=== PATIENT | male | born 1985 ===

== ENCOUNTER 2020-07-06 17:09 | Inpatient (IN) ==
[~2020-07-06 17:09] MED LIST: Zosyn per Pharmacy NOTE FOLLOW UP SCH
[2020-07-06] MEDS ORDERED: NS 0.9% 1000 ml BAG 1,000 ML IV ONE ×2 (17:36)
[2020-07-06] MEDS ORDERED: Piperacillin/Tazobac ADVAN 3.375 GM in NS 0.9% 100 ml BAG 100 ML IVPB ONE (18:20)
[2020-07-06] MEDS ORDERED: NS 0.9% 1000 ml BAG 1,000 ML IV.FLUID IV ONE (18:20)
[2020-07-06 19:52] LABS: Hematocrit 35 % (42-52); Hemoglobin 11.9 g/dL (14.0-18.0); Mean Corpuscular HGB Conc 34 g/dL (31-36); Mean Corpuscular Hemoglobin 31 pg (27-31); Mean Corpuscular Volume 89 fL (80-94); Mean Platelet Volume 8.9 fL (7.4-10.4); Platelet Count 155 10^3/uL (150-450); Red Blood Count 3.89 10^6 /uL (4.18-5.48); Red Cell Distribution Width 13 % (10-15); White Blood Count 13.7 10^3/uL (3.5-10.8)
[2020-07-06 19:54] LABS: ALT 27 U/L (7-52); AST 36 U/L (13-39); Albumin 2.9 g/dL (3.2-5.2); Albumin/Globulin Ratio 0.8 (1-3); Alkaline Phosphatase 190 U/L (34-104); Anion Gap 13 mmol/L (2-11); BUN/Creatinine Ratio 16.5 (8-20); Blood Urea Nitrogen 21 mg/dL (6-24); C Reactive Protein 181.89 mg/L (<8.01); CO2 Carbon Dioxide 21 mmol/L (22-32); Calcium 8.2 mg/dL (8.6-10.3); Chloride 88 mmol/L (101-111); EGFR African American 78.6 (>60); EGFR Non-African American 64.9 (>60); Globulin 3.5 g/dL (2-4); Glucose 107 mg/dL (70-100); Sodium 122 mmol/L (135-145); Total Protein 6.4 g/dL (6.4-8.9)
[2020-07-06 19:56] LABS: Activated Partial Thrombo Time 26.8 seconds (26.0-38.0); INR 1.18 (0.82-1.09)
[2020-07-06 20:03] LABS: Troponin I 0.07 ng/mL (<0.03)
[2020-07-06 20:37] LABS: ABS Lymphocytes 0.2 10^3/ul (1.0-4.8); ABS Monocytes 0.2 10^3/ul (0-0.8); ABS Neutrophils 13.2 10^3/ul (1.5-7.7); Eosinophil % 0.3 %; Lymphocyte % 1.8 %
[2020-07-06] MEDS ORDERED: Iohexol 300 (CONTRAST) 10 ML SDV IV ONE (21:04)
[2020-07-06 21:31] LABS: Urine Appearance Cloudy; Urine Bilirubin Negative (Negative); Urine Blood 1+ (Negative); Urine Color Yellow; Urine Glucose Negative (Negative); Urine Ketones Negative (Negative); Urine Nitrite Positive (Negative); Urine Protein 1+(30 mg/dL) (Negative); Urine Specific Gravity 1.008 (1.010-1.030); Urine Urobilinogen Negative (Negative)
[2020-07-06 21:33] LABS: Influenza A Molecular Negative (Negative); Influenza B Molecular Negative (Negative)
[2020-07-06 21:36] LABS: Urine Bacteria 1+ (Absent); Urine Red Blood Cell Trace(0-2/hpf) (Absent); Urine White Blood Cell 1+(6-10/hpf) (Absent)
[2020-07-06] MEDS ORDERED: KCL 10 MEQ/50 ML IVPREMIX 10 MEQ/50 ML BAG IV ONE (21:37)
[2020-07-06 23:08] LABS: Troponin I 0.06 ng/mL (<0.03)
[2020-07-07 00:29] LABS: Magnesium 1.8 mg/dL (1.9-2.7)
[2020-07-07] MEDS ORDERED: NS 0.9% 1000 ml BAG 1,000 ML IV SCH ×2 (00:30→09:00)
[2020-07-07 00:48] LABS: Urine Sodium Concentration < 18 mmol/L
[2020-07-07 00:57] LABS: Renal Sodium Excretion 0.31 %; Urine Creatinine Concentration 58.66 mg/dL
[2020-07-07 01:31] LABS: Creatinine, Serum 1.27 mg/dL (0.51-0.95)
[2020-07-07] MEDS ORDERED: NS 0.9% 1000 ml BAG 1,000 ML IV ONE (01:38)
[2020-07-07 01:55] LABS: GGTP 91 U/L (9-64.0); Total Iron Binding Capacity 274 mcg/dL (250-450); Transferrin 196 mg/dL (203-362)
[2020-07-07] MEDS ORDERED: ZOSYN 3.375 GM x ONE DOSE over 30 miuntes IV (02:00)
[2020-07-07 02:10] LABS: % Iron Saturation 7 % (15-55); Iron < 20 ug/dL (50-212); Unsaturated Iron Binding < 259 ug/dL
[2020-07-07 02:15] LABS: Ferritin 452.3 ng/mL (24-336)
[2020-07-07 07:30] LABS: Hematocrit 33 % (42-52); Hemoglobin 11.2 g/dL (14.0-18.0); Mean Corpuscular HGB Conc 34 g/dL (31-36); Mean Corpuscular Hemoglobin 31 pg (27-31); Mean Corpuscular Volume 92 fL (80-94); Mean Platelet Volume 9.6 fL (7.4-10.4); Platelet Count 132 10^3/uL (150-450); Red Blood Count 3.56 10^6 /uL (4.18-5.48); Red Cell Distribution Width 13 % (10-15); White Blood Count 17.8 10^3/uL (3.5-10.8)
[2020-07-07 07:47] LABS: Albumin 2.4 g/dL (3.2-5.2); Albumin/Globulin Ratio 0.8 (1-3); BUN/Creatinine Ratio 12.7 (8-20); Calcium 7.5 mg/dL (8.6-10.3); EGFR African American 85.5 (>60); EGFR Non-African American 70.7 (>60); Potassium 2.9 mmol/L (3.5-5.0); Total Bilirubin 0.6 mg/dL (0.2-1.0); Total Protein 5.4 g/dL (6.4-8.9)
[2020-07-07] MEDS: ZOSYN 3.375 GM Q8H per EXTENDED INFUSION IV SCH ×2 (08:25→16:49)
[2020-07-07] MEDS ORDERED: NS 0.9% 500 ml BAG 500 ML IV ONE (08:46)
[2020-07-07] MEDS ORDERED: Lactated Ringers 1000 ml BAG 1,000 ML IV SCH (09:00)
[2020-07-07 09:18] LABS: Magnesium 2.1 mg/dL (1.9-2.7)
[2020-07-07 09:37] LABS: ABS Basophils 0.1 10^3/ul (0-0.2); ABS Eosinophils 0.1 10^3/ul (0-0.6); ABS Lymphocytes 0.6 10^3/ul (1.0-4.8); ABS Monocytes 1.8 10^3/ul (0-0.8); ABS Neutrophils 15.3 10^3/ul (1.5-7.7); Eosinophil % 0.3 %; Lymphocyte % 3.3 %
[2020-07-07] MEDS: HYDROmorphone 1 MG/1 ML SYRINGE IV SLOW PU PRN ×4 (09:53→21:17)
[2020-07-07] MEDS ORDERED: Midazolam 2 mg/2 ml VIAL 1 mg/ml 2 ml VIAL (2 mg) ONE ×2 (10:37→10:38)
[2020-07-07] MEDS ORDERED: Flumazenil 0.5 mg/5 ml 0.1 MG/ML 5 ml VIAL ONE (10:37)
[2020-07-07] MEDS ORDERED: Naloxone 0.4 mg VIAL 0.4 mg/ml 1 ml VIAL ONE (10:38)
[2020-07-07] MEDS ORDERED: fentaNYL 100 mcg/2 ml 50 MCG/ML VIAL ONE (10:38)
[2020-07-07 12:31] LABS: Urine Appearance Turbid; Urine Bilirubin Negative (Negative); Urine Blood 2+ (Negative); Urine Glucose Negative (Negative); Urine Ketones Negative (Negative); Urine Nitrite Negative (Negative); Urine Protein 2+(100 mg/dL) (Negative); Urine Specific Gravity 1.026 (1.010-1.030); Urine Urobilinogen Negative (Negative)
[2020-07-07 12:39] LABS: Urine Bacteria Absent (Absent); Urine Red Blood Cell 3+(>10/hpf) (Absent); Urine White Blood Cell 3+(>20/hpf) (Absent)
[2020-07-07 13:56] LABS: Urine Color Red
[2020-07-07] MEDS ORDERED: Lactated Ringers 1000 ml BAG 1,000 ML IV ONE (15:52)
[2020-07-07] MEDS: Potassium Chloride IV 20 MEQ in Lactated Ringers 1000 ml BAG 1,000 ML IVPB SCH (20:03)
[2020-07-07 20:15] LABS: BUN/Creatinine Ratio 12.3 (8-20); Calcium 7.2 mg/dL (8.6-10.3); EGFR African American 82.3 (>60); Potassium 3.1 mmol/L (3.5-5.0)
[2020-07-08] MEDS: ZOSYN 3.375 GM Q8H per EXTENDED INFUSION IV SCH ×2 (00:11→07:40)
[2020-07-08] MEDS: HYDROmorphone 1 MG/1 ML SYRINGE IV SLOW PU PRN ×2 (00:30→16:41)
[2020-07-08] MEDS: Potassium Chloride IV 20 MEQ in Lactated Ringers 1000 ml BAG 1,000 ML IVPB SCH ×3 (04:30→22:46)
[2020-07-08] MEDS ORDERED: Potassium Chlor 20 meq TAB.ER PO ONE (07:58)
[2020-07-08] MEDS: cefTRIAXone 1 gm/50 mL NS BAG 1 GM/50 ML BAG IVPB SCH (08:50)
[2020-07-09 06:41] LABS: ABS Eosinophils 0.1 10^3/ul (0-0.6); ABS Lymphocytes 1.1 10^3/ul (1.0-4.8); ABS Monocytes 1.1 10^3/ul (0-0.8); ABS Neutrophils 14.8 10^3/ul (1.5-7.7); Eosinophil % 0.7 %; Hematocrit 32 % (42-52); Hemoglobin 11.1 g/dL (14.0-18.0); Lymphocyte % 6.2 %; Mean Corpuscular HGB Conc 35 g/dL (31-36); Mean Corpuscular Hemoglobin 31 pg (27-31); Mean Corpuscular Volume 90 fL (80-94); Mean Platelet Volume 10.1 fL (7.4-10.4); Nucleated Red Blood Cells % 0.1; Platelet Count 181 10^3/uL (150-450); Red Blood Count 3.55 10^6 /uL (4.18-5.48); Red Cell Distribution Width 13 % (10-15); White Blood Count 17.1 10^3/uL (3.5-10.8)
[2020-07-09 06:53] LABS: Albumin 2.2 g/dL (3.2-5.2); Albumin/Globulin Ratio 0.8 (1-3); BUN/Creatinine Ratio 16.2 (8-20); EGFR African American 161.5 (>60); EGFR Non-African American 133.5 (>60); Globulin 2.8 g/dL (2-4); Potassium 3.4 mmol/L (3.5-5.0); Total Bilirubin 0.3 mg/dL (0.2-1.0)
[2020-07-09] MEDS: HYDROmorphone 1 MG/1 ML SYRINGE IV SLOW PU PRN (07:52)
[2020-07-09 07:55] LABS: C Reactive Protein 77.73 mg/L (<8.01)
[2020-07-09] MEDS: cefTRIAXone 1 gm/50 mL NS BAG 1 GM/50 ML BAG IVPB SCH (07:58)
[2020-07-09 09:00] VITALS: BP 128/83
[2020-07-09 10:42] LABS: Corrected Retic Count 0.2 % (0.5-1.5); Hematocrit for Retic CNT 33 % (42-52); Immature Retic Fraction 0.39; RBC Retic Count 3.55 10^6/uL (4.18-5.48)
[2020-07-09] MEDS ORDERED: Potassium Chlor 20 meq TAB.ER PO ONE (10:43)
== END 2020-07-09 11:39 | disposition home or self-care (01) | DRG 872 ==
LOC: ED 17:09 → MED 23:49
PROVIDERS: ADMIT Internal Medicine; ATTEND Internal Medicine